=== PATIENT | male | born 1970 | race Caucasian/White ===

== ENCOUNTER 2021-07-21 20:19 | Emergency (ER) | payer OTHER, SELFPAY ==
--- NOTE | ~2021-07-21 | XR_ITS ---
EXAMINATION: XR HAND, RIGHT CLINICAL INFORMATION: Laceration to middle phalanx of the third digit. COMPARISON: None TECHNIQUE: PA, lateral, and oblique views of the right hand. FINDINGS: No evidence of acute fractures or malalignment. No radiopaque foreign bodies. No subcutaneous air. XR/XR hand RT min 3V IMPRESSION: No acute fractures or malalignment.
[2021-07-21 20:20] VITALS: BP 154/78; PULSE 78; RESP 18; TEMP 36.6; O2SAT 98; BMI 26.1
--- NOTE | 2021-07-21 20:30 | ED.WOUNDLAC ---
HPI - Wound/Laceration General Chief Complaint: Wound/Laceration Stated Complaint: fing lac Time Seen by Provider: 07/21/21 20:30 Source: patient Mode of arrival: ambulatory Limitations: no limitations History of Present Illness HPI narrative: This is a 51-year-old male presenting to the emergency department with right sided 3rd digit pain and a laceration to the 3rd digit , patient cut himself on a table saw, making an art project. Patient tells me this was accidental, he notes that the nail bed is also involved. Patient applied a dressing to the area. He tells me he can still he feel his finger, and move it but it hurts. Patient has no other complaints at this time. Patient does not believe that there is a foreign body in the area. Patient is not up to date on a tetanus shot he will receive 1 today. Onset (ago): hour(s) (1) Location: other (right middle finger ) Place: home Patient tetanus UTD: No Context: accidental Associated symptoms: pain Treatments prior to arrival: bandage Related Data Previous Rx's Medication Instructions Recorded cephalexin 500 mg tablet 500 mg PO Q6H 10 Days #40 tab 07/21/21 doxycycline hyclate 100 mg capsule 100 mg PO BID 10 Days #20 cap 07/21/21 oxycodone 5 mg tablet 5 mg PO Q8H PRN #8 tab 07/21/21 Allergies Allergy/AdvReac Type Severity Reaction Status Date / Time Unable to Assess Allergy Unverified 07/21/21 20:31 Review of Systems Review of Systems: Constitutional : No Fever, No Chills, Cardiovascular : No Chest Pain, No SOB Respiratory : No Dyspnea Gastrointestinal : No abdominal pain Musculoskeletal : No Joint Swelling Skin : No rash, positive skin laceration Neuro : No Weakness, No Numbness Psych : No SI/HI Yes all other systems are reviewed and are negative [facility] Past Medical History Attestation statement: The following information was validated with the patient. Source: old records reviewed and nursing notes reviewed Social History Social History Advance Directives: No Advance Directives Information Provided: Yes Physical Exam Vital Signs: Vital Signs: Last Vital Signs Temp 98 F 07/21/21 20:20 Pulse 78 07/21/21 20:20 Resp 18 07/21/21 20:20 BP 154/78 H 07/21/21 20:20 Pulse Ox 98 07/21/21 20:20 BMI result Body Mass Index 26.1 VSS patient hypertensive likely secondary to pain Appearance: Alert.? Oriented X3.? No acute distress.? Head: Normocephalic, atraumatic, no step-offs or deformities CVS: Normal heart rate and rhythm.? Pulses normal.? Respiratory: No respiratory distress.? Breath sounds normal.? Abdomen: Soft and nontender.? Skin: Skin warm and dry.? Normal skin color.? Normal skin turgor.?+ skin laceration to the dorsal aspect of right 3rd digit, distal aspect, linear laceration longitudinal. With nail bed involvement, nail bed appears to be slightly avulsed. No evident foreign body laceration. Extremities: No lower extremity edema.? No calf ttp. 5/5 strength to bilateral upper and lower extremities Back: No midline tenderness, no C-spine tenderness, full range of motion, no CVA tenderness bilaterally Neuro: Oriented X 3.? No motor deficit.? No sensory deficit. Post lac repair: Course Reevaluation(s) Reevaluation #1: Area successfully sutured, patient tolerated procedure well. X-ray pending. Time: 21:19 Reevaluation #2: Plan is to discharge patient home on Keflex and doxycycline for infection prevention. I will also send him home on oxycodone 5 mg as needed for pain. I have advised him to alternate ibuprofen and Tylenol preferably, but if he is having severe pain he can use a narcotic. Patient agrees to the plan. I will also provide patient with Dr. Cat contact information, he can reach out to her as needed or if symptoms get worse. Patient is safe for discharge home, and I have advised him on infection precautions, and have educated him on signs of infection and when to return to the emergency department. Time: 21:37 MDM - Wound/Laceration MDM Narrative Medical decision making narrative: [id number] 51-year-old male no known medical history presents to the emergency department with complaints of right 3rd digit pain and laceration status post cutting himself with a table saw just prior to his arrival. Patient reports pain at the site, no numbness, or paresthesias. Upon physical examination there is a skin laceration to the dorsal aspect of right 3rd digit, distal aspect, linear laceration longitudinal. With nail bed involvement, nail bed appears to be slightly avulsed. No evident ligament or tendon involvement. Capillary refill less than 2 seconds, sensation and motor intact to bilateral upper extremities, and all digits. Plan at this time is to suture the area using 4-0 nonabsorbable sutures and 2% lidocaine. Medical Records Attestation: I reviewed the patient's medical records. Lab Data Attestation: I reviewed the patient's lab results. Imaging Data Right hand xray : Attestation: I personally reviewed and interpreted this imaging study as follows: Radiologist's impression: XR/XR hand RT min 3V IMPRESSION: No acute fractures or malalignment. Procedures Laceration Laceration 1: Site: hand Side (If applicable): right Size (cm): 5 Description: linear Depth: simple, single layer Local Anesthetic: lidocaine 2% Amount of anesthesia used (mL): 8 Pre-repair: wound explored, irrigated extensively and deep structures intact Skin layer closed with: vicryl Size (cm): 4-0 Number of sutures: 5 Technique: simple, interrupted Critical Care Time Critical Care Time Critical Care Time: No Discharge Plan Discharge Clinical Impression: Laceration, Deformity of nail bed Patient Disposition: Home, Self-Care Instructions: Care For Your Stitches (ED), Finger Laceration (ED), Stitches Removal (ED) Additional Instructions: Take your medications as prescribed. If you were prescribed antibiotics today, it is important that you take your medication to their entirety, do not skip any doses, do not finish them early. Take ibuprofen every 6 hours, Tylenol every 4 hours as needed for pain, if pain is severe, you can take your narcotic however I recommend you try ibuprofen and Tylenol 1st. Narcotics can make you constipated, I recommend you take [id number] stool softeners of you plan on taking these narcotics. Follow-up with your primary care provider this week. Return to the emergency department with new or worsening symptoms. In case of emergency call 911 I attest that I have reviewed patients [employer], and at the time prescribing the patient a controlled substance is appropriate based off of patients diagnosis and treatment plan. Prescriptions: New doxycycline hyclate 100 mg capsule 100 mg PO BID 10 Days Qty: 20 RF: 0 cephalexin 500 mg tablet 500 mg PO Q6H 10 Days Qty: 40 RF: 0 oxycodone 5 mg tablet 5 mg PO Q8H PRN (Reason: pain) Qty: 8 RF: 0 Referrals: Joseltio Morel MD [Primary Care Provider] - 2 days Haydee Cat MD [Physician] - 1 week Stand Alone Forms: Work/School Release Interventions: ED Discharge Assessment Last Done: 07/21/21 22:00 Discharge Date/Time: 07/21/21 22:03
[2021-07-21] MEDS: Diphth,Pertus(ACell),Tet Adult 0.5 ML SYRINGE IM (21:28)
[2021-07-21] MEDS: Lidocaine HCl 2 % MPF 5 ML VIAL SUBCUT (21:31)
== END 2021-07-21 22:03 | disposition home or self-care (01) ==
PROVIDERS: Emergency Provider Emergency Medicine Emergency Medical Services; PCP Internal Medicine
DX: S61.312A Laceration without foreign body of right middle finger with damage to nail, initial encounter (principal); W31.2XXA Contact with powered woodworking and forming machines, initial encounter; Y93.89 Activity, other specified; Y92.019 Unspecified place in single-family (private) house as the place of occurrence of the external cause; Y99.9 Unspecified external cause status
CPT/HCPCS: 12042; 73130; 90471; 90715; 99284